=== PATIENT | male | born 1980 | race Caucasian/White ===

== ENCOUNTER 2021-04-19 09:11 | Day surgery (SDC) | payer OTHER, SELFPAY ==
--- NOTE | 2021-04-19 | PATH_ITS ---
[facility] Accession Number: [id number] . 01 Material submitted: . esophagus - ESOPHAGEAL BIOPSY . 01 Clinical history: . A: R/O EOE . 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 Intraepithelial eosinophils are not increased. Negative for dysplasia and malignancy. MRV 04/21/2021 1113 Local . 02 Electronically signed: . Goyo Rajput MD, PhD, Pathologist NPI- [id number] . 01 Gross description: . ESOPHAGEAL BIOPSY: Received in formalin are 4 fragment(s) of camacho, soft tissue measuring 0.1 x 0.1 x 0.1 cm to 0.3 x 0.2 x 0.2 cm submitted entirely in 1 cassette(s) /ERIK 04/20/2021 0201 Local . 02 Pathologist provided ICD-10: R13.10 . 02 CPT . 118127 Performed at: 01 [facility] [address] [facility], [place], [place] [id number] MD Fernando Dobbins MD Phone: [phone] Performed at: 02 [facility] [address] [place], [place] [id number] MD Leatha Tucker MD Phone: [phone]
[2021-04-19 09:43] VITALS: BP 139/88; PULSE 74; RESP 16; TEMP 36.6; O2SAT 98; BMI 34.0
[2021-04-19] MEDS: SODIUM CHLORIDE 0.9% 1,000 ML 150 ML IV (10:03)
[2021-04-19 10:09] LABS: COVID19 -Nasal RAPID Negative (Negative)
--- NOTE | 2021-04-19 10:18 | PM.HP.1 ---
History of Present Illness History of Present Illness Date Patient Seen: 04/19/21 Chief complaint: SDC Narrative: Dysphagia Patient History Family & Social History Social History: household members spouse Tobacco & Substance use: Smoking Status Never smoker alcohol intake current alcohol intake frequency a few times a week Substance Use Type does not use Meds Home Medications and Allergies Home Medications Medication Instructions Recorded Confirmed Type omeprazole 20 mg capsule,delayed 20 mg PO DAILY 04/19/21 04/19/21 History release Allergies Allergy/AdvReac Type Severity Reaction Status Date / Time No Known Drug Allergies Allergy Verified 04/19/21 09:41 Exam Vital Signs (past 8 hours): - 04/19/21 09:43 Temperature 97.8 F Pulse Rate 74 Respiratory Rate 16 Blood Pressure 139/88 Pulse Oximetry 98 Oxygen Delivery Method Room Air Narrative Exam Narrative: Oropharynx free of lesions Chest clear to auscultation percussion Cardiac exam reveals no S3 or murmur Objective ECG Impression: Dysphagia rule out eosinophilic esophagitis versus a mechanical lesion such as a Schatzki's ring. Risks, benefits, alternatives to an EGD and possible dilation and been explained. Labs Labs: Laboratory Results - last 24 hr 04/19/21 09:24 SARS-CoV-2 (PCR) Negative Assessment & Plan Assessment & Plan narrative: Oropharynx Time Spent With Patient Critical Care time: I spent a total of [] minutes of critical care time on this patient's care today; this time is exclusive of procedural time.
--- NOTE | 2021-04-19 10:20 | PM.OP.EGD ---
Operative Date/Time/Diagnoses Date of procedure: 04/19/21 Pre-op diagnosis: See indication and findings Procedure & Clinicians Study performed: EGD with biopsy and possible dilation Indications: Dysphagia Surgeon: Daniel Morrell Procedure Notes Procedure in detail: After informed consent was obtained the patient was placed in left lateral decubitus position. The video upper scope was placed into the oropharynx and with the patient's help swelled the esophagus. The esophagus stomach and duodenum were carefully examined. On withdrawal, retroflexed view the GE junction was performed. The scope was removed. The patient tolerated procedure well. Blood loss none Complications none Sedation mac Findings 1. Esophagus with longitudinal furrows and very mild rings present in the mid to distal overseas less 0) esophagus. Biopsies were taken to rule out eosinophilic esophagitis 2. Squamocolumnar junction without clear evidence of Schatzki's ring. This was evaluated both on forward and retroflexed view. 3. Normal stomach 4. Normal duodenum We will merely await biopsy results but I suspect this will confirm the eosinophilic esophagitis. If not, esophageal manometry will be performed.
[2021-04-19 10:33] VITALS: BP 127/80; PULSE 65; RESP 15; TEMP 36.4; O2SAT 98
[2021-04-19 10:38] VITALS: BP 117/76; PULSE 59; RESP 12; O2SAT 98
[2021-04-19 10:46] VITALS: BP 129/80; PULSE 63; RESP 16; O2SAT 98
[2021-04-19 10:48] VITALS: BP 116/75; PULSE 80; RESP 14; TEMP 36.2; O2SAT 98
--- NOTE | 2021-04-19 11:00 | SUR.PHASEII ---
Report to MATTIE Owen. All questions answered.
[2021-04-19 11:04] VITALS: BP 121/79; PULSE 65; RESP 16; TEMP 36.3; O2SAT 99
== END 2021-04-19 11:40 | disposition home or self-care (01) ==
PROVIDERS: Referring Provider Internal Medicine Gastroenterology; Visit Provider Internal Medicine Gastroenterology
PROC: 0DJ08ZZ Inspection of Upper Intestinal Tract, Via Natural or Artificial Opening Endoscopic (ICD-10-PCS; CPT 43235; principal; 2021-04-19 10:30)
DX: R13.10 Dysphagia, unspecified (principal); K21.9 Gastro-esophageal reflux disease without esophagitis
CPT/HCPCS: 43239; 87635; J2704